=== PATIENT | female | born 1935 | race African-American/Black ===

== ENCOUNTER 2021-05-15 14:20 | Emergency (ER) | payer OTHER ==
[~2021-05-15] VITALS: Ht 165.1 cm; Wt 58.7 kg
--- NOTE | 2021-05-15 14:20 | NUR ---
PT BIBRA 89 FROM HOME FOR C/O GEN BODY WEAKNESS. PT IS AAOX2, NOT IN RESPIRATORY DISTRESS, HOOKED TO EPITAXIAL REACTOR TECHNICIAN, KEPT RESTED AND COMFORTABLE. WILL CONTINUE TO MONITOR.
--- NOTE | 2021-05-15 15:00 | NUR ---
PT SEEN AND EXAMINED BY .
--- NOTE | 2021-05-15 15:05 | NUR ---
IV LINE ESTABLISHED G20 R FOREARM.
--- NOTE | 2021-05-15 15:13 | NUR ---
PT IS WHEELED TO CT SCAN VIA [facility].
--- NOTE | 2021-05-15 15:22 | NUR ---
THE PATIENT IS BACK FROM [place] VIA [facility]
[2021-05-15] MEDS ORDERED: FOLI0.8T2 PO (15:40)
[2021-05-15] MEDS ORDERED: BETA1TAB18 PO (15:40)
[2021-05-15] MEDS ORDERED: CHOL100062 PO (15:40)
[2021-05-15] MEDS ORDERED: LACT10SO3 PO (15:40)
[2021-05-15] MEDS ORDERED: POTA10TA10 PO (15:40)
[2021-05-15] MEDS ORDERED: PRAV40TA3 PO (15:40)
[2021-05-15] MEDS ORDERED: CICL6.1H2 IH (15:40)
[2021-05-15] MEDS ORDERED: ALBU18HF2 IH (15:40)
[2021-05-15] MEDS ORDERED: ACET-2605 PO (15:40)
[2021-05-15] MEDS ORDERED: ASPI-1169 PO (15:40)
[2021-05-15] MEDS ORDERED: HYDR30CR79 RC (15:40)
--- NOTE | 2021-05-15 15:51 | NUR ---
URINE SPECIMEN COLLECTED AND SENT TO LAB.
[2021-05-15 17:02] LABS: BILIRUBIN,URINE NEGATIVE (NEGATIVE); COLOR,URINE DARK YELLOW (YELLOW); LEUKOCYTE ESTERASE ,URINE SMALL (NEGATIVE); NITRITE, URINE NEGATIVE (NEGATIVE); PH,URINE 5.5 (5.0-8.0); PROTEIN,URINE NEGATIVE (NEGATIVE); UGLUCOSE NEGATIVE (NEGATIVE); UROBILINOGEN,URINE 0.2 EU/dL (0.2)
[2021-05-15 17:12] LABS: BACTERIA,URINE 2+ /HPF (None Seen)
[2021-05-15 17:31] LABS: ALANINE AMINOTRANSFERASE 49 U/L (12-78); ALBUMIN 3.8 g/dL (3.4-5.0); ALKALINE PHOSPHATASE 65 U/L (46-116); ASPARTATE AMINOTRANSFERASE 75 U/L (15-37); BILIRUBIN,DIRECT 0.2 mg/dL (0.0-0.2); BILIRUBIN,TOTAL 0.8 mg/dL (0.2-1.0); CALCIUM, SERUM 9.8 mg/dL (8.5-10.1); CARBON DIOXIDE 19 mmol/L (21-32); CHLORIDE 106 mmol/L (98-107); CREATININE 1.1 mg/dL (0.6-1.3); GLUCOSE 83 mg/dL (74-106); POTASSIUM 3.9 mmol/L (3.5-5.1); SODIUM SERUM 139 mmol/L (136-145); TOTAL PROTEIN, SERUM 8.3 g/dL (6.4-8.2); UREA NITROGEN, BLOOD 27 mg/dL (7-18)
[2021-05-15] MEDS ORDERED: CEFTRIAXONE 1 G in IV D5W 50 ML IV ONE (18:00)
[2021-05-15] MEDS ORDERED: IV NS 0.9% 1,000 ML BAG IV ONE (18:00)
[2021-05-15 18:05] LABS: THYROID STIMULATING HORMONE 1.684 uIU/mL (0.358-3.74)
[2021-05-15 18:07] LABS: BASOPHILS % (AUTO) 0.5 % (0.0-2.0); EOSINOPHILS % (AUTO) 2.6 % (0.0-6.0); HEMATOCRIT 33 % (33-45); HEMOGLOBIN 10.6 g/dL (11.5-14.8); LYMPHOCYTES # (AUTO) 1.3 K/uL (0.8-4.8); LYMPHOCYTES % (AUTO) 21.4 % (20.0-44.0); MEAN CORPUSCULAR HGB CONC 33 g/dl (31.0-36.0); MEAN CORPUSCULAR VOLUME 95 fL (82-100); MONOCYTES # (AUTO) 0.7 K/uL (0.1-1.30); MONOCYTES % (AUTO) 11.4 % (2.0-12.0); NEUTROPHILS % (AUTO) 64.1 % (43.0-81.0); PLATELET COUNT (AUTO) 188 K/uL (150-450); WHITE BLOOD COUNT (AUTO) 6.2 K/uL (4.3-11.0)
[2021-05-15] MEDS ORDERED: CEFTRIAXONE 1GM BAG (ER ONLY) 50 ML IV ONE (18:07)
--- NOTE | 2021-05-15 18:21 | NUR ---
CALLED [facility] [phone] WILL CALL US BACK
--- NOTE | 2021-05-15 18:31 | NUR ---
JP RG SPEAKING WITH DR. EDEN
--- NOTE | 2021-05-15 19:18 | NUR ---
PT ACCEPTED AT [facility], ACCEPTING DR. GUAN - DOROTHY ETA PRN: [id number]
--- NOTE | 2021-05-15 20:17 | NUR ---
CALLED [facility] FOR REPORT NO ANSWER.
--- NOTE | 2021-05-15 20:18 | NUR ---
ON HOLD FOR 10 MINS FOR REPORT.
--- NOTE | 2021-05-15 20:26 | NUR ---
CALLED [facility] AGAIN CHARGED RN NOT ANSWERING.
--- NOTE | 2021-05-15 21:25 | NUR ---
REPORT GIVEN TO [facility].
--- NOTE | 2021-05-15 22:17 | NUR ---
PRN 130 AT BEDSIDE FOR TRANSPORT TO [facility]. REPORT GIVEN. PT IS IN STABLE CONDITITON FOR TRANSPORT. NAD NOTED.
[2021-05-15 22:19] VITALS: BP 114/68
--- NOTE | 2021-05-15 22:45 | NUR ---
PT WAS TRANSFERRED TO [facility]
== END 2021-05-15 22:45 | disposition short-term general hospital (02) ==
LOC: ER 14:21
DX: N39.0 Urinary tract infection, site not specified (principal); E86.0 Dehydration; R41.82 Altered mental status, unspecified; Z20.822 Contact with and (suspected) exposure to COVID-19; I44.4 Left anterior fascicular block; R00.1 Bradycardia, unspecified; Z88.6 Allergy status to analgesic agent; Z88.0 Allergy status to penicillin; Z88.8 Allergy status to other drugs, medicaments and biological substances; I10 Essential (primary) hypertension; F03.90 Unspecified dementia, unspecified severity, without behavioral disturbance, psychotic disturbance, mood disturbance, and anxiety
CPT/HCPCS: 36415; 70450; 71045; 80048; 80076; 81001; 83605; 84443; 84484; 85025; 87040 ×2; 87077; 87086; 87186; 87426; 93005; 96365; 99285; C9803; J0696 ×2; J7040; J7060

== ENCOUNTER 2021-05-20 09:18 | Emergency (ER) | payer OTHER ==
[~2021-05-20] VITALS: Ht 149.9 cm; Wt 59.0 kg
[~2021-05-20 09:18] MED LIST: ACET-2605 PO; ALBU18HF2 IH; ASPI-1169 PO; BETA1TAB18 PO; CHOL100062 PO; CICL6.1H2 IH; FOLI0.8T2 PO; HYDR30CR79 RC; LACT10SO3 PO; POTA10TA10 PO; PRAV40TA3 PO
--- NOTE | 2021-05-20 09:27 | NUR ---
BIBRA 78 FROM HOME C/O R SHOULDER PAIN AND R FOREHEAD BRUISE. S/P SLIPPED AND FELL -KO. VITALS ARE WITHIN NORMAL LIMIS. BREATHING IS EVEN AND UNLABORED.
--- NOTE | 2021-05-20 10:42 | NUR ---
SPOKE TO PT DAUGHTER ADITYA AND STATED SHE WILL COME WITHIN 45 MIN TO TRAFFIC CIRCUIT ENGINEER HER MOTHER
--- NOTE | 2021-05-20 11:06 | NUR ---
Patient discharged to home in stable condition. Written and verbal after care instructions given. Patient verbalizes understanding of instruction.
--- NOTE | 2021-05-20 11:23 | NUR ---
PT DAUGHTER WAS ARRUVED AND PT WAS ASSISTED TO HER CAR.
[2021-05-20 11:35] VITALS: BP 129/80
== END 2021-05-20 11:36 | disposition home or self-care (01) ==
LOC: ER 09:25
DX: S01.01XA Laceration without foreign body of scalp, initial encounter (principal); S60.211A Contusion of right wrist, initial encounter; I10 Essential (primary) hypertension; Z88.0 Allergy status to penicillin; Z88.8 Allergy status to other drugs, medicaments and biological substances; Z79.82 Long term (current) use of aspirin; Z79.899 Other long term (current) drug therapy; W07.XXXA Fall from chair, initial encounter; Y93.89 Activity, other specified; Y92.89 Other specified places as the place of occurrence of the external cause; Y99.8 Other external cause status
CPT/HCPCS: 70450-TC; 73110